=== PATIENT | female | born 1980 | race Caucasian/White ===

== ENCOUNTER 2018-04-30 12:13 | Emergency (ER) | payer OTHER ==
[~2018-04-30] VITALS: Ht 167.6 cm; Wt 60.3 kg
--- NOTE | 2018-04-30 22:18 | EKG ---
[facility] [address] [facility] [place], [place] [id number] Signed Normal sinus rhythm Possible Anterior infarct , age undetermined Abnormal ECG No previous ECGs available Confirmed by ANNIKA BLACK DO ([id number]) on 04/30/2018 10:18:34 PM Electronically Signed By: ANNIKA BLACK DO 04/30/18 2218 PATIENT NAME: TY BRITTON Electrocardiogram DATE OF : 76 PHYSICIAN: ANNIKA BLACK DO REPORT #: [id number] REPORT IS CONFIDENTIAL AND NOT TO BE RELEASED WITHOUT AUTHORIZATION
== END 2018-04-30 15:49 | disposition home or self-care (01) ==
LOC: ED 12:13
DX: R07.9 Chest pain, unspecified (principal)
CPT/HCPCS: 71045; 80053; 84484; 85025; 85379; 93005; 93010; 99285-25